=== PATIENT | male | born 1980 | race Caucasian/White ===

== ENCOUNTER → 2018-04-25 13:59 | Outpatient (CLI) | payer OTHER, SELFPAY ==
--- NOTE | 2018-04-25 14:00 | CA_ITS ---
PROCEDURE: 2-D M-mode and color Doppler study INDICATIONS FOR THE TEST: Chest pain + COPD Heart Murmur Tobacco Smoking Palpitations Fatigue+ Syncope Edema Hypertension Diabetes Mellitus Rheumatic Fever SOB+REIS Obesity+Hyperlipidemia Family History HD Additional History HEP C, RECOVERED IV DRUG ADDICT, EX SMOKER PATIENT INFORMATION HEIGHT: 65 WEIGHT:216 GENDER: Male B/P:142/89 2-D/M-MODE INTERPRETATION: 2-D MEASUREMENTS OBSERVED VALUES IN CMS Right Ventricular Dimension (RVDd) 2.0 Interventricular Septum (Thickness)(IVsd) 1.0 Left Ventricular Internal Dimensions(LVIDd) 4.8 Left Ventricular Posterior Wall (Thickness)(LVPWd) 1.0 Aortic Root 3.4 Aortic Cusp Separation 2.1 Left Atrial Dimensions (LAD) 3.5 2D 1. Left atrium is normal size, left ventricle is normal size, visually estimated ejection fraction 55% with no obvious regional wall motion abnormality. 2. The right atrium and right ventricle are normal size and contractility. 3. The aortic valve, mitral and tricuspid valve are grossly normal. 4. The pulmonic valve is poorly visualized. 5. No significant pericardial effusion noted. DOPPLER INTERROGATION: Doppler interrogation of the aortic, mitral and tricuspid valvular presence of mild mitral and tricuspid regurgitation, tricuspid and jet velocity is insufficient for calculation of the right ventricular systolic pressure, diastolic parameters are inconclusive. CONCLUSION: 1. Normal left ventricular size, preserved left ventricular systolic function, visually estimated ejection fraction 55% with no obvious regional wall motion abnormality. 2. Mild mitral and tricuspid regurgitation 3. No significant pericardial effusion noted.
== END ==
PROVIDERS: Family Provider Emergency Medicine; PCP Emergency Medicine; Visit Provider Internal Medicine
DX: R07.9 Chest pain, unspecified (principal); R94.31 Abnormal electrocardiogram [ECG] [EKG]; R06.09 Other forms of dyspnea; B19.20 Unspecified viral hepatitis C without hepatic coma
CPT/HCPCS: 93017; 93306

== ENCOUNTER → 2018-08-04 15:04 | Outpatient (CLI) | payer OTHER, SELFPAY ==
--- NOTE | 2018-08-04 15:06 | XR_ITS ---
XR chest 2V HISTORY: Left-sided chest pain, smoker ITS.REASON: cough ORDERING PHYSICIAN: Radha Thibodeaux PATIENT AGE: 38 years COMPARISON: None FINDINGS: The cardiomediastinal silhouette and pulmonary vascularity are within normal limits. There is mild coarsening of bronchovascular markings suggesting mild peribronchial inflammatory change. No lobar consolidation or collapse. No acute bony anomalies. IMPRESSION: Mild coarsening of the bronchovascular markings otherwise negative
== END ==
PROVIDERS: PCP Nurse Practitioner Family; Visit Provider Nurse Practitioner Family
DX: R05 Cough (principal)
CPT/HCPCS: 71046